=== PATIENT | female | born 1930 | race Caucasian/White ===

== ENCOUNTER 2016-08-22 11:53 | Emergency (ER) | payer MEDICARE, OTHER ==
[~2016-08-22 11:53] MED LIST: ABREVA2 GM TOP; ANUSOL-HC25 MG RC; ARTIFICIAL TEAR15 M1 OP; ATIVAN0.5 MG PO; B-1100 MG PO; BACTRIM DS TAB1 EACH PO; CALCIUM 600 +1 EAC7 PO; CARAFATE1 GM PO; COLACE100 MG PO; COZAAR50 MG PO; CYANOCOBAL1000 MCG/1 IJ; FEOSOL325 MG PO; FLEXERIL10 MG PO; FOLIC ACID1 MG PO; FOSAMAX70 MG PO; GAS-X80 MG PO; HYDROCODON-ACE1 EAC6 PO; LEVOTHYROXINE200 MC1 PO; LEVOTHYROXINE25 MCG PO; NYSTOP60 GM TOP; NYSTOP60 GM TP; PROTONIX40 MG PO; TAMOXIFEN CITRA10 MG PO; VESICARE5 MG PO; VITAMIN D250000 UNIT PO
== END 2016-08-22 14:59 | disposition other institution (70) ==
LOC: ER 11:53
DX: K29.70 Gastritis, unspecified, without bleeding (principal); R10.13 Epigastric pain; R10.33 Periumbilical pain; I10 Essential (primary) hypertension; Z85.3 Personal history of malignant neoplasm of breast; Z90.11 Acquired absence of right breast and nipple; Z79.899 Other long term (current) drug therapy
CPT/HCPCS: 99284; 99284-25

== ENCOUNTER 2016-08-22 11:53 | Inpatient (IN) | payer OTHER, MEDICARE | END 2016-08-27 13:15 | disposition home or self-care (01) | DRG 439 | LOC: ER 11:53 → MS 14:59 | PROVIDERS: ADMIT Family Medicine | DX: K85.90 Acute pancreatitis without necrosis or infection, unspecified (principal); T83.511A Infection and inflammatory reaction due to indwelling urethral catheter, initial encounter; R10.9 Unspecified abdominal pain; R11.2 Nausea with vomiting, unspecified; E87.6 Hypokalemia; K74.60 Unspecified cirrhosis of liver; E86.0 Dehydration; K59.00 Constipation, unspecified; R50.9 Fever, unspecified; R74.8 Abnormal levels of other serum enzymes; Z85.3 Personal history of malignant neoplasm of breast; Z90.11 Acquired absence of right breast and nipple; I10 Essential (primary) hypertension; Z83.3 Family history of diabetes mellitus; Z80.9 Family history of malignant neoplasm, unspecified; Z82.49 Family history of ischemic heart disease and other diseases of the circulatory system; Z83.6 Family history of other diseases of the respiratory system; Z79.899 Other long term (current) drug therapy; Z79.891 Long term (current) use of opiate analgesic; Z88.0 Allergy status to penicillin; Z90.49 Acquired absence of other specified parts of digestive tract; N30.90 Cystitis, unspecified without hematuria; B96.20 Unspecified Escherichia coli [E. coli] as the cause of diseases classified elsewhere ==